=== PATIENT | male | born 1990 | race Caucasian/White ===

== ENCOUNTER 2021-09-06 10:15 | Emergency (ER) | payer OTHER, SELFPAY ==
[2021-09-06] MEDS ORDERED: Boostrix 0.5 ML (Tdap) VIAL ONE (11:37)
== END 2021-09-06 12:20 | disposition home or self-care (01) ==
LOC: CSHERS 10:15
DX: S61.451A Open bite of right hand, initial encounter (principal); W54.0XXA Bitten by dog, initial encounter
CPT/HCPCS: 90471; 90715